=== PATIENT | female | born 2000 | race Two or more races ===

== ENCOUNTER → 2024-09-17 | Outpatient (CLI) | payer OTHER | LOC: M WHC 15:23 | PROVIDERS: ATTEND Advanced Practice Midwife | DX: O24.410 Gestational diabetes mellitus in pregnancy, diet controlled (principal) ==

== ENCOUNTER → 2024-09-23 | Outpatient (REF) | payer OTHER ==
[2024-09-23 13:42] LABS: APPEARANCE, URINE CLEAR (CLEAR); BACTERIA, URINE AUTO NEGATIVE (NEGATIVE); BILIRUBIN, URINE AUTO NEGATIVE (NEGATIVE); BLOOD, URINE BLOOD NEGATIVE (NEGATIVE); GLUCOSE, URINE (UA) AUTO NEGATIVE (NEGATIVE); KETONE, URINE AUTO NEGATIVE (NEGATIVE); LEUKOCYTE ESTERASE, URINE AUTO NEGATIVE (NEGATIVE); NITRITE, URINE AUTO NEGATIVE (NEGATIVE); PROTEIN, URINE AUTO NEGATIVE (NEGATIVE); RBC, URINE AUTO 0 /HPF (0-3); SPECIFIC GRAVITY URINE AUTO 1.003 (1.002-1.035); SQUAMOUS EPITHELIAL CELL UR AU 0 /HPF (0-6); UROBILINOGEN, URINE AUTO 0.2 mg/dL (0.0-2.0); WBC, URINE AUTO 0 /HPF (0-3)
== END ==
LOC: M SFHCWAGY 12:46
PROVIDERS: ATTEND Obstetrics & Gynecology
DX: Z34.83 Encounter for supervision of other normal pregnancy, third trimester (principal)

== ENCOUNTER 2024-10-02 19:09 | Outpatient (CLI) | payer OTHER ==
[~2024-10-02] VITALS: Ht 162.6 cm; Wt 76.8 kg
[2024-10-02] MEDS ORDERED: PRENTAB9 PO (19:25)
[2024-10-02 19:28] VITALS: BP 120/62; O2SAT 99
== END 2024-10-02 22:16 | disposition home or self-care (01) ==
LOC: M LDO 19:09
PROVIDERS: ATTEND Obstetrics & Gynecology
DX: O47.1 False labor at or after 37 completed weeks of gestation (principal); O24.410 Gestational diabetes mellitus in pregnancy, diet controlled; Z3A.37 37 weeks gestation of pregnancy
CPT/HCPCS: 59025; G0463

== ENCOUNTER 2024-10-06 08:35 | Outpatient (CLI) | payer OTHER ==
[~2024-10-06] VITALS: Ht 162.6 cm; Wt 75.9 kg
[~2024-10-06 08:35] MED LIST: PRENTAB9 PO
[2024-10-06 08:52] VITALS: BP 106/62
[2024-10-06] MEDS ORDERED: FISH100042 PO (08:52)
[2024-10-06] MEDS ORDERED: HOME MED LIST COMPLETE! XX SCH (08:55)
== END 2024-10-06 09:39 | disposition home or self-care (01) ==
LOC: M LDO 08:35
PROVIDERS: ATTEND Advanced Practice Midwife
DX: O26.893 Other specified pregnancy related conditions, third trimester (principal); O24.410 Gestational diabetes mellitus in pregnancy, diet controlled; R10.2 Pelvic and perineal pain; Z3A.38 38 weeks gestation of pregnancy
CPT/HCPCS: 59025; G0463

== ENCOUNTER 2024-10-12 07:37 | Inpatient (IN) | payer OTHER ==
[2024-10-12] VITALS (40 sets, daily range): BP systolic 98–166; BP diastolic 52–75
[~2024-10-12] VITALS: Ht 162.6 cm; Wt 75.9 kg
[~2024-10-12 07:37] MED LIST changes: +FISH100042 PO
[2024-10-12] MEDS ORDERED: HOME MED LIST COMPLETE! XX SCH (08:00)
[2024-10-12 08:41] LABS: PLATELET COUNT, AUTOMATED 240 10^3/uL (150-450)
[2024-10-12] MEDS: LACTATED RINGER'S 1000 ML IV STA (09:24)
[2024-10-12] MEDS ORDERED: OXYTOCIN INJ 10UNITS/ML 1ML VIAL IV PRN (09:25)
[2024-10-12] MEDS ORDERED: LR 1,000 ML IV SCH (09:25)
[2024-10-12] MEDS ORDERED: TRANEXAMIC ACID INJection 1,000 MG in NS 100 ML IV PRN (09:25)
[2024-10-12] MEDS ORDERED: OXYTOCIN INJ 10UNITS/ML 1ML VIAL IM PRN (09:25)
[2024-10-12] MEDS ORDERED: METHYLERGONOVINE MALEATE 0.2 MG/ML 1 ML VIAL IM PRN (09:25)
[2024-10-12] MEDS ORDERED: LIDOCAINE 1% MDV 20 ML VIAL INFIL PRN (09:25)
[2024-10-12] MEDS ORDERED: OXYTOCIN DRIP 30 UNITS in IV 1 EA IV PRN ×3 (09:25)
[2024-10-12] MEDS ORDERED: CARBOPROST TROMETHAMINE 250 MCG/ML AMP IM PRN (09:25)
[2024-10-12 09:35] LABS: HIV 1&2 SCREEN NEGATIVE (NEGATIVE)
[2024-10-12 09:43] LABS: HEPATITIS C VIRUS ABY INDEX < 0.02 INDEX (<0.8)
[2024-10-12] MEDS: OXYTOCIN DRIP 30 UNITS in IV 1 EA IV SCH (10:00)
[2024-10-12] MEDS: LR 1,000 ML IV SCH (10:00)
[2024-10-12] MEDS ORDERED: EPIDURAL/PCA KEYS XX PRN (20:15)
[2024-10-12] MEDS ORDERED: ONDANSETRON 4MG 2ML VIAL IV PRN (20:15)
[2024-10-12] MEDS ORDERED: LR 500 ML IV PRN (20:15)
[2024-10-12] MEDS ORDERED: NALOXONE INJ 0.4 MG/1 ML VIAL IV PRN (20:15)
[2024-10-12] MEDS ORDERED: diphenhydrAMINE 50 MG/ML VIAL IV PRN (20:15)
[2024-10-12] MEDS: FENTANYL/ROPIVACAINE/NACL BAG 100 ML EPIDURAL SCH (20:27)
[2024-10-13] VITALS (8 sets, daily range): BP systolic 94–131; BP diastolic 51–73; O2SAT 98–99
[2024-10-13 00:20] LABS: CORD GAS ABE V -6.8; CORD GAS HCO3 V 19.4 MMOL/L; CORD GAS O2 SAT V 67.1 %; CORD GAS PCO2 V 41.2 mmHg; CORD GAS PH V 7.29 UNITS; CORD GAS PO2 V 29.2 mmHg; CORD GAS SBC V 18.3 MMOL/L; CORD GAS TCO2 V 20.6 MMOL/L
[2024-10-13] MEDS ORDERED: DOCUSATE SODIUM 100 MG CAPSULE PO PRN (00:20)
[2024-10-13] MEDS ORDERED: IBUPROFEN 800 MG TAB PO PRN (00:20)
[2024-10-13] MEDS ORDERED: MOM 30 ML SUSPENSION UDC PO PRN (00:20)
[2024-10-13] MEDS ORDERED: ANUSOL HC CREAM 30 GM TOP PRN (00:20)
[2024-10-13 00:22] LABS: CORD GAS ABE A -8.2; CORD GAS HCO3 A 18.4 MMOL/L; CORD GAS O2 SAT A 78.6 %; CORD GAS PCO2 A 41.8 mmHg; CORD GAS PH A 7.262 UNITS; CORD GAS PO2 A 37.2 mmHg; CORD GAS SBC A 17.6 MMOL/L; CORD GAS TCO2 A 19.7 MMOL/L
[2024-10-13] MEDS: DIBUCAINE 1% OINTMENT 30 GM TOP PRN (02:37)
[2024-10-13] MEDS: PRENATAL VITAMINS CHEWABLE TABLET PO SCH (09:24)
[2024-10-13] MEDS: ACETAMINOPHEN 500 MG TAB PO PRN (23:21)
[2024-10-14 05:57] VITALS: BP 100/55; O2SAT 100
[2024-10-14] MEDS ORDERED: ACET-683 PO (11:51)
[2024-10-14] MEDS ORDERED: IBUP80TA PO (11:51)
[2024-10-15] MEDS ORDERED: MEASLES,MUMPS,RUBELLA VACCINE INJ (MMR-II) SC.IMMUN ONE (09:00)
== END 2024-10-14 14:00 | disposition home or self-care (01) | DRG 807 ==
LOC: M LDI 07:37 → M OBS 10-13 02:05
PROVIDERS: ADMIT Obstetrics & Gynecology; ATTEND Obstetrics & Gynecology
PROC: 10907ZC Drainage of Amniotic Fluid, Therapeutic from Products of Conception, Via Natural or Artificial Opening (ICD-10-PCS; 2024-10-12)
PROC: 3E033VJ Introduction of Other Hormone into Peripheral Vein, Percutaneous Approach (ICD-10-PCS; 2024-10-12)
PROC: 10E0XZZ Delivery of Products of Conception, External Approach (ICD-10-PCS; principal; 2024-10-13)
PROC: 0KQM0ZZ Repair Perineum Muscle, Open Approach (ICD-10-PCS; 2024-10-13)
DX: O24.420 Gestational diabetes mellitus in childbirth, diet controlled (principal); Z37.0 Single live birth; Z3A.39 39 weeks gestation of pregnancy; O70.1 Second degree perineal laceration during delivery

== ENCOUNTER 2024-10-29 11:55 | Emergency (ER) | payer OTHER ==
[~2024-10-29] VITALS: Ht 162.6 cm; Wt 69.4 kg
[~2024-10-29 11:55] MED LIST changes: +ACET-683 PO; +IBUP80TA PO
[2024-10-29 13:22] LABS: BASO # 0.1 10^3/uL (0.0-0.2); BASO % 0.4 % (0.0-1.0); EOS # 0.0 10^3/uL (0.0-0.5); EOS % 0.3 % (0.0-3.0); LYMPH # 1.5 10^3/uL (1.5-5.0); LYMPH % 10.5 % (24.0-44.0); MONO # 0.8 10^3/uL (0.0-0.8); MONO % 6.1 % (2.0-8.0); NEUTROPHILS # 11.4 10^3/uL (1.5-8.5); NEUTROPHILS % 82.4 % (36.0-66.0); PLATELET COUNT, AUTOMATED 314 10^3/uL (150-450)
[2024-10-29 13:33] LABS: ERYTHROCYTE SEDIMENTATION RATE 23 mm/hr (0-20)
[2024-10-29 13:55] LABS: ALT/SGPT 24 U/L (7.0-40); AST/SGOT 27 U/L (<34); C REACTIVE PROTEIN QUANTITATIV 1.61 MG/DL (<1.0); CALCIUM LEVEL 9.4 MG/DL (8.5-10.1); CARBON DIOXIDE LEVEL 26 MMOL/L (20-31); CHLORIDE LEVEL 105 MMOL/L (98-107); CREATININE FOR GFR 0.55 MG/DL (0.55-1.30); GLOMERULAR FILTRATION RATE > 90.0 (>60); POTASSIUM SERUM 4.1 MMOL/L (3.5-5.1); SODIUM LEVEL 144 MMOL/L (136-145)
[2024-10-29 16:13] VITALS: TEMP 99.2
[2024-10-29 17:00] VITALS: BP 101/55; O2SAT 99
[2024-10-29] MEDS: CEPHALEXIN 500 MG CAP PO ONE (17:17)
[2024-10-29] MEDS: ACETAMINOPHEN 500 MG TAB PO ONE (17:17)
== END 2024-10-29 17:21 | disposition home or self-care (01) ==
LOC: M ED 11:55
DX: N61.0 Mastitis without abscess (principal); Z79.1 Long term (current) use of non-steroidal anti-inflammatories (NSAID); Z79.899 Other long term (current) drug therapy; Z79.810 Long term (current) use of selective estrogen receptor modulators (SERMs)